=== PATIENT | female | born 1955 | race Caucasian/White ===

== ENCOUNTER 2024-08-02 10:08 | Outpatient (AMB) | payer OTHER, SELFPAY ==
--- NOTE | 2024-08-02 10:31 | MHC.OFFVIS ---
Vital Signs 08/02/24 10:32 Height 5 ft 3 in Weight 137 lb 5.568 oz BMI 24.3 BP 108/66 Blood Pressure Location Lt brachial Position Sitting Pulse 79 Pulse Source Pulse Oximeter Pulse Oximetry (%) 98 Oxygen Delivery Method Room Air Intake Visit Reasons: osteoporosis Intake Note: Patient presents for RA follow up today accompanied with her daughter and . Accompanied by: Daughter Allergies coconut Allergy (Mild, Verified 08/02/24 10:39) Anaphylaxis peanut Allergy (Mild, Verified 08/02/24 10:39) Anaphylaxis sesame Allergy (Mild, Uncoded 08/02/24 10:39) Anaphylaxis tree nuts Allergy (Mild, Uncoded 08/02/24 10:39) Anaphylaxis HPI HPI osteoporosis: Details: Hx breast cancer status post left mastectomy in remission. Last mammogram was this month. She tried leflunomide in April for a month but it caused rash, diarrhea, headaches and nausea with combination methotrexate. Diarrhea was then subsequently treated with cholestyramine without benefit. Symptoms have resolved. Hydroxychloroquine was discontinued but I am unclear why. She tried hydroxychloroquine for 1 month and reports no side effects. She was previously on Plaquenil 300 mg daily. Morning stiffness is hours. She had swelling in her hands and pain in her elbows. She also has pain in her ankles and feet. She ran out of prednisone. Review of Systems Const All systems reviewed & are unremarkable except as noted in HPI and below Physical Exam Vital Signs: Last Vital Signs Pulse 79 08/02/24 10:32 BP 108/66 08/02/24 10:32 Pulse Ox 98 08/02/24 10:32 Oxygen Delivery Method Room Air 08/02/24 10:32 BMI result Body Mass Index 24.3 Const Other: General: Comfortable CVS: RRR Respiratory: clear to auscultation bilaterally. Good respiratory effort Skin: No lesions seen MSK: Tender to palpate bilateral MCPs withsynovitis. Tender PIPs. Right 3rd PIP is swollen. Tender wrists. Tender elbows. Left elbow synovitis present. Range of motion with abduction of bilateral shoulders is not full. Full internal external rotation of bilateral shoulders. Tender bilateral knees, ankles and MTPs. Assessment & Plan Assessment & Plan (1) Rheumatoid arthritis: Comment: We Seronegative. Erosive marginal bony erosions. Diagnosed in 2009. Failed Humira. Combination methotrexate and Enbrel was discontinued 05/2020 due diagnosis of breast cancer initiation of chemo. Hydroxychloroquine was started 01/20/2022 then discontinued for unclear reasons 2023. Methotrexate restarted 2023 and up titrated to 20 mg once weekly. Inflammatory arthritis is uncontrolled. We discussed management with combination DMARD therapy. At this time I would like to restart hydroxychloroquine with methotrexate after lab results are back and reassess with follow-up in 3 months. We discussed the possibility of considering triple therapy (methotrexate, hydroxychloroquine and sulfasalazine) with PCP prophylaxis versus methotrexate and selective MIGUEL 1 inhibitor Rinvoq. We discussed risks and benefits of both options. Patient is very hesitant of trying another biologic due to cancer history, which is understandable. She has history of anemia, which is why I am avoiding nonselective MIGUEL inhibitors tofacitinib and baricitinib. Code(s): M06.9 - Rheumatoid arthritis, unspecified Category: Medical Plan: [facility] for drug monitoring on high-risk medication. I am requesting lab results prior sending prescription for hydroxychloroquine 300 mg daily and methotrexate 20 mg once weekly Continue folic acid 1 mg daily She would need labs next month. Patient prefers to do labs a her local lab. Lab requisition given to patient Return to clinic in 3 months (2) Other longterm (current) drug therapy: Code(s): Z79.899 - Other longterm (current) drug therapy Category: Medical Plan: See above Orders: Orders C Reactive Protein 1 Month M06.9 - Rheumatoid arthritis, unspecified, Z79.899 - Other longterm (current) drug therapy Alanine Aminotransferase 1 Month Z79.60 - [facility] (current) use of unspecified immunomodulators and immunosuppressants Aspartate Amino Transferase 1 Month Z79.60 - [facility] (current) use of unspecified immunomodulators and immunosuppressants Creatinine 1 Month Z79.60 - [facility] (current) use of unspecified immunomodulators and immunosuppressants T Spot TB 1 Month M06.9 - Rheumatoid arthritis, unspecified, Z79.899 - Other design inserter (current) drug therapy Erythrocyte Sedimentation Rate 1 Month M06.9 - Rheumatoid arthritis, unspecified, Z79.899 - Other longterm (current) drug therapy Complete Blood Count Auto Diff 1 Month Z79.60 - [facility] (current) use of unspecified immunomodulators and immunosuppressants Hepatitis B,C Profile 1 Month M06.9 - Rheumatoid arthritis, unspecified, Z79.899 - Other longterm (current) drug therapy Medications: New prednisone Take 4 tablet daily 5 days, 3 tablets daily 5 days, 2 tablets daily 5 days, 1 tablet daily 5 days. Take prednisone with food 5 mg PO DIRECTED 50 tabs 0RF Coding Level of Care Code Est Pt Level 4 (49065) Complex EM visit Add On G2211 Diagnoses Rheumatoid arthritis M06.9 Other design inserter (current) drug therapy Z79.899
[2024-08-02 10:32] VITALS: BP 108/66; PULSE 79; O2SAT 98; BMI 24.3
== END 2024-08-02 11:49 | disposition home or self-care (01) ==
PROVIDERS: PCP Internal Medicine; Visit Provider Internal Medicine Rheumatology
DX: M06.9 Rheumatoid arthritis, unspecified (principal); Z79.899 Other long term (current) drug therapy
CPT/HCPCS: 99214

== ENCOUNTER → 2024-08-02 10:08 | Outpatient (BNVA) | payer OTHER, SELFPAY | PROVIDERS: PCP Internal Medicine; Visit Provider Internal Medicine Rheumatology ==

== ENCOUNTER 2024-10-11 09:25 | Outpatient (REF) | payer OTHER, SELFPAY ==
--- OUTSIDE RECORDS SUMMARY | 2024-10-11 10:35 | XMS_ITS | Patient Health Record ---
Author Organization [facility] Address [address] [place] [address] Care Team Providers Care Sagger Filler Name Role Phone Elder LUBIN, Vee Primary Care Provider Saqib Douglas Unavailable [phone] Allergies Allergen (clinical drug ingredient) Drug/Non Drug Allergy documented on EMR Reaction Allergy Type Onset Date Status Peanut Butter Flavor Unknown Drug Allergy Active peanut allergenic extract Peanut (Diagnostic) Unknown Drug Allergy Active sesame seed allergenic extract Sesame Seed (Diagnostic) Unknown Drug Allergy Active Adhesive rash Allergy Active coconut oil Coconut Oil Unknown Drug Allergy Act eduardo cortisone Cortisone red face Drug Allergy Active Latex Latex rash Allergy Active Tree Nuts Unknown Allergy Active Reason For Referral No Information Medications Medication SIG (Take, Route, Frequency, Duration) Notes Start Date End Date Status Ado-Trastuzumab Emtansine Active Magnesium 250 MG 1 tablet with a meal Orally Once a day for 30 day(s) Active Herceptin Active Folic Acid 1 MG 1 tablet Orally Once a day for 30 day(s) Active Calcium 600 MG 1 tablet with meals Orally Twice a day for 30 day(s) Active Vitamin D Active Synthroid 88 MCG 1 tablet in the morn ing on an empty stomach Orally Once a day for 30 day(s) Active Multivitamin - 1 tablet Orally Once a day for 30 day(s) Active Immunizations Vaccine Route Administration Date Status Comme nts COVID-19 Pfizer BioNTech Vaccine Unknown 11/20/2020 Administered COVID-19 Pfizer BioNTech Vaccine Unknown 12/16/2020 Administered 1st 11/20/2020 Social History Tobacco Use: Social History Observation Description Date Details (start date - stop date) Never Smoker NA - NA Tobacco Use/Smoking Question Answer Notes Are you a: nonsmoker Additional Findings: Tobacco Non-User Current no n-smoker Alcohol Screen Question Answer Notes Did you have a drink containing alcohol in the p ast year? No Points 0 Interpretation Negative Tobacco use other than smoking: Question Answer Notes Are you an other tobacco user? No Plan Of Treatment Pending Test Test Name Order Date [id number] Plate 12/27/2020 [id number] Plate 01/15/2021 Insurance Providers Payer Name Payer Address Payer Phone Subscriber Number Group Number Insured Name Patient Relationship to Insured Coverage Start Date Coverage End Date Cigna [address] [place] [phone] [id number] Jonathan Carlos Spouse - patient is the spouse of the insured Medical (General) History Medical History History ICD Code Anemia Arthritis breast cancer Measles Mumps Chicken pox Numbness Reflux ( GERD) thyroid Transfusions Surgical History Surgery Date(Month/Year) left mastectomy 11/07/2020 Axillary Lymphnode Dissection 12/10/2020
--- OUTSIDE RECORDS SUMMARY | 2024-10-11 10:35 | XMS_ITS | Clinical Summary ---
Author Organization [facility] Address [address] [place] [address] Care Team Providers Care Military Technician Name Role Phone Unavailable Primary Care Provider Unavailabl e Social History Tobacco Use Types Packs/Day Years Used Date Smoking Tobacco: Never Assessed Sex and Gender Information Value Date Recorded Sex Assigned at Not on file Gender Identity Not on file Sexual Orientation Not on file Plan of Treatment Not on file
--- OUTSIDE RECORDS SUMMARY | 2024-10-11 10:35 | XMS_ITS ---
Author Name [facility] Organization Unknown Encounters Encounter Type Encounter Reason Primary Diagnosis Location Date Ambulatory [facility] 04/06/2023
[2024-10-11 18:24] LABS: MANUAL DIFF FLAG NO
[2024-10-11 19:04] LABS: Basophils Percent Auto 0.9 % (0-2); Eosinophils Absolute Auto 0.2 X10*3/uL (0.0-0.4); Eosinophils Percent Auto 4.2 % (0-4); Hematocrit 36.8 % (37.0-47.0); Hemoglobin 12.2 g/dl (12.0-16.0); Lymphocytes Absolute Auto 1.2 X10*3/uL (1.2-4.9); Lymphocytes Percent Auto 28.7 % (20-40); Mean Corpuscular HGB Conc 33.2 g/dl (31.0-35.0); Mean Corpuscular Hemoglobin 30.7 pg (27.0-33.0); Mean Corpuscular Volume 92.7 fL (80.0-98.0); Monocytes Absolute Auto 0.7 X10*3/uL (0.1-1.2); Monocytes Percent Auto 15.9 % (2-11); Neutrophils Absolute Auto 2.2 x10*3/uL (2.0-8.3); Neutrophils Percent Auto 50.3 % (45-73); Platelet Count 290 X10*3/uL (160-400); Red Blood Count 3.97 X10*6/uL (4.20-5.50); Red Cell Distribution Width 14.1 % (11.0-16.0); White Blood Count 4.3 X10*3/uL (4.8-10.8)
[2024-10-11 19:45] LABS: Alanine Aminotransferase 16 U/L (0-31); Aspartate Amino Transferase 30 U/L (5-31); C Reactive Protein < 0.10 mg/dL (< or = 0.50); Estimated Glomerular Filt Rate > 60
[2024-10-11 20:12] LABS: Erythrocyte Sedimentation Rate 12 MM/HR (0-20)
[2024-10-12 04:02] LABS: HBsAGNum1 0.24 S/CO (0.00-0.99); Hepatitis B Core Antibody Nonreactive (Nonreactive); Hepatitis B Surface Antigen Negative (Negative); ~HepC Num1 0.12 S/CO (0.00-0.79); ~Hepatitis B Surface Antibody NONREACTIVE (Nonreactive); ~Hepatitis C Antibody Nonreactive (Nonreactive)
[2024-10-14 17:13] LABS: TS Negative Control Passed; TS Panel A 0; TS Panel B 0; TS Positive Control Passed; TSpotTB Negative (Negative)
== END 2024-10-11 09:26 | disposition home or self-care (01) ==
LOC: HO.HKASLDS 09:25
PROVIDERS: Visit Provider Internal Medicine Rheumatology
DX: M06.9 Rheumatoid arthritis, unspecified (principal); Z79.899 Other long term (current) drug therapy; Z79.60 Long term (current) use of unspecified immunomodulators and immunosuppressants
CPT/HCPCS: 36415; 82565; 84450; 84460; 85025; 85652; 86140; 86481; 86704; 86706; 86803; 87340

== ENCOUNTER 2024-10-27 08:45 | Outpatient (AMB) | payer OTHER, SELFPAY ==
--- NOTE | 2024-10-27 08:49 | MHC.OFFVIS ---
Vital Signs 10/27/24 09:03 Height 5 ft 3 in Weight 132 lb 7.965 oz BMI 23.5 BP 100/60 Blood Pressure Location Rt brachial Position Sitting Pulse 60 Pulse Source Pulse Oximeter Pulse Oximetry (%) 98 Oxygen Delivery Method Room Air Intake Visit Reasons: Follow Up 3mo Intake Note: Patient presents for RA follow up Allergies coconut Allergy (Mild, Verified 10/27/24 09:03) Anaphylaxis peanut Allergy (Mild, Verified 10/27/24 09:03) Anaphylaxis sesame Allergy (Mild, Uncoded 08/02/24 10:39) Anaphylaxis tree nuts Allergy (Mild, Uncoded 08/02/24 10:39) Anaphylaxis HPI HPI Follow Up 3mo: Details: MS 15-20minutes. Hands and feet. She has throbbing sensation at night. 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 She felt unwell with gabapentin with increased somnolence. Review of Systems Const All systems reviewed & are unremarkable except as noted in HPI and below Physical Exam Vital Signs: Last Vital Signs Pulse 60 10/27/24 09:03 BP 100/60 10/27/24 09:03 Pulse Ox 98 10/27/24 09:03 Oxygen Delivery Method Room Air 10/27/24 09:03 BMI result Body Mass Index 23.5 Const Other: General: Comfortable CVS: RRR Respiratory: clear to auscultation bilaterally. Good respiratory effort Skin: No lesions seen MSK: Tender to palpate right 2nd to 5th PIP with synovitis of right 2nd and 3rd PIP. Squaring of left CMC with tenderness on palpation. No tenderness of wrists, elbows or shoulders. Normal range of motion of upper extremity and lower extremity. MTP tenderness with slight synovitis of 1st and 2nd MTPs bilateral. Assessment & Plan Assessment & Plan (1) Rheumatoid arthritis: Comment: Inflammatory arthritis has improved on combination with methotrexate and hydroxychloroquine. We discussed next steps with a course of prednisone. She has mild leukopenia on recent labs possibly due to methotrexate. I will monitor. Rheumatology history: Seronegative. Erosive marginal bony erosions. Diagnosed in 2009. Failed Humira. Combination methotrexate and Enbrel was discontinued 05/2020 due diagnosis of breast cancer initiation of chemo. Hydroxychloroquine was started 01/20/2022 then discontinued for unclear reasons 2023. Methotrexate restarted 2023 and up titrated to 20 mg once weekly. HCQ 07/2024- Code(s): M06.9 - Rheumatoid arthritis, unspecified Category: Medical Plan: Prednisone course prescribed Continue hydroxychloroquine 300 mg daily. Eye exam visual field needs to be repeated in November. OCT not done. Patient will inquire about OCT at next appointment. Continue methotrexate 20 mg once weekly Continue folic acid 1 mg daily Labs for disease and drug monitoring on high-risk medication up-to-date Return to clinic in 3 months (2) Osteoarthritis of carpometacarpal joint of left thumb: Comment: Left CMC pain is uncontrolled Code(s): M18.12 - Unilateral primary osteoarthritis of first carpometacarpal joint, left hand Category: Medical Qualifiers: Osteoarthritis type: primary Qualified Code(s): M18.12 - Unilateral primary osteoarthritis of first carpometacarpal joint, left hand Plan: OT for custom splint and exercise program (3) Other marine oil terminal superintendent (current) drug therapy: Code(s): Z79.899 - Other marine oil terminal superintendent (current) drug therapy Category: Medical Plan: See above Orders: Orders OT Evaluation and Treatment Today M18.12 - Unilateral primary osteoarthritis of first carpometacarpal joint, left hand Medications: New prednisone Take 4 tablets daily 5 days, 3 tablets daily 5 days, 2 tablets daily 5 days, 1 tablet daily 5 days then stop. Take prednisone with food. 5 mg PO DIRECTED 50 tabs 0RF Coding Level of Care Code Est Pt Level 4 (48016) Complex EM visit Add On G2211 Diagnoses Rheumatoid arthritis M06.9 Primary osteoarthritis of first carpometacarpal joint of left hand M18.12 Osteoarthritis type: primary Other marine oil terminal superintendent (current) drug therapy Z79.899
[2024-10-27 09:03] VITALS: BP 100/60; PULSE 60; O2SAT 98; BMI 23.5
--- OUTSIDE RECORDS SUMMARY | 2024-10-27 09:32 | XMS_ITS | Patient Health Record ---
Author Organization [facility] Address [address] [place] [address] Care Team Providers Care Field Sales Specialist Name Role Phone Elder LUBIN, Vee Primary Care Provider Saqib Douglas Unavailable [phone] Allergies Allergen (clinical drug ingredient) Drug/Non Drug [...] Treatment Pending Test Test Name Order Date [id number] Plate 12/27/2020 [id number] Plate 01/15/2021 Insurance Providers Payer Name Payer Address Payer Phone Subscriber Number Group Number Insured Name Patient Relationship to Insured Coverage Start Date Coverage End Date Cigna [address] [place] [phone] [id number] Jonathan Carlos Spouse - patient is the spouse of the insured Medical (General) History Medical History History ICD Code Anemia Arthritis breast cancer Measles Mumps Chicken pox Numbness Reflux ( GERD) thyroid Transfusions Surgical History Surgery Date(Month/Year) left mastectomy 11/07/2020 Axillary Lymphnode Dissection 12/10/2020
--- OUTSIDE RECORDS SUMMARY | 2024-10-27 09:32 | XMS_ITS | Clinical Summary ---
Author Organization [facility] Address [address] [place] [address] Care Team Providers Care Fish Hatchery Specialist Name Role Phone Unavailable Primary Care Provider Unavailabl e Social History Tobacco Use Types Packs/Day Years Used Date Smoking Tobacco: Never Assessed Sex and Gender Information Value Date Recorded Sex Assigned at Not on file Gender Identity Not on file Sexual Orientation Not on file Plan of Treatment Not on file
== END 2024-10-27 09:37 | disposition home or self-care (01) ==
LOC: HO.RHES 08:45
PROVIDERS: PCP Internal Medicine; Visit Provider Internal Medicine Rheumatology
DX: M06.9 Rheumatoid arthritis, unspecified (principal); M18.12 Unilateral primary osteoarthritis of first carpometacarpal joint, left hand; Z79.899 Other long term (current) drug therapy
CPT/HCPCS: 99214

== ENCOUNTER 2024-11-23 09:28 | Outpatient (RCR) | payer OTHER, SELFPAY ==
--- NOTE | 2024-11-02 11:40 | MHC.OT.EP ---
[address] [phone] Occupational Therapy Plan of Care Patient Name: Enid Dimas Date of Evaluation: 11/02/24 Diagnosis: OA of L CMC joint Pain Location: Left CMC joint Current: 02/09 Right digits 2-5 Current: 02/09 Assessment: Enid is a 68 y/o female referred to OT with worsening left thumb pain due to OA. Pt reports constant pain, stiffness, and decreased strength of L hand. Also has pain and edema in right digits 2-5. Is currently on a Prednisone taper due to recent exacerbation of RA. Pt seen in clinic today to discuss splinting options and education on home program. Pt presents with restricted left wrist ROM with flexion at 52? and extension at 30?. Notable tenderness to palpation at the left CMC joint, accompanied by a visible bony prominence. Psych Nurse strength is decreased bilaterally (15# on the right and 10# on the left), with Quick DASH score of 45.5% indicating moderate difficulty with functional tasks, specifically opening jars and carrying heavier items. Enid would benefit from short term skilled OT for splinting, joint protection techniques and education on HEP for optimal function. Frequency and Duration: The patient will be seen 1x/wk for 3 weeks Short Term Goals: IND with thermal modalities for pain management IND with splinting schedule to stabilize the left CMC joint, reduce pain, and improve function Mcc Goals: IND with joint protection strategies, activity modification, and adaptive techniques IND with hand/wrist ROM and progressive strengthening HEP Treatment Plan: Therapeutic Exercise Therapeutic Activity Home Exercise Program Splinting Patient Education Paraffin [facility]HP Electronically Signed By: Verna Hill MS OTR/L Please Sign and return to therapist. Thank you once again for your referral.
--- NOTE | 2024-11-23 14:15 | MHC.OT.DC ---
[address] [phone] F: [phone] Occupational Therapy Discharge Note Patient Name: Enid Dimas Provider: Leroy Colon Diagnosis: OA of L CMC joint Date of Discharge: 11/23/24 Treatments to Date: 3 Discharge Status: Achieved Goals Improved Function Independent with HEP Discharge Summary: Enid reports consistent use of thumb spice splint with positive outcomes, including overall reduction in thumb pain. During pinch activities, she demonstrates improved awareness of previous compensatory hyperextension at the MCP joint of the left thumb, which was likely contributing to joint stress and discomfort. At this time, the patient is independent with pain management strategies and her home exercise program. She is in agreement with discharge. Thank you for this referral! Electronically Signed By: Verna Hill, OTR/L Reviewed/agree with student documentation: Therapist: Please Sign and return to therapist, thank you for your referral.
== END 2024-11-23 14:23 | disposition home or self-care (01) ==
LOC: HO.OTS 09:28
PROVIDERS: Visit Provider Internal Medicine Rheumatology
DX: M18.12 Unilateral primary osteoarthritis of first carpometacarpal joint, left hand (principal)
CPT/HCPCS: 97018; 97110; 97165

== ENCOUNTER 2025-01-17 09:14 | Outpatient (AMB) | payer OTHER, SELFPAY ==
[2025-01-17 09:16] VITALS: BP 100/72; PULSE 69; O2SAT 96; BMI 23.5
--- NOTE | 2025-01-17 09:16 | A.OFFVIS_ITS ---
Vital Signs 01/17/25 09:16 Height 5 ft 3 in Weight 132 lb 8 oz BMI 23.5 BP 100/72 Blood Pressure Location Rt brachial Position Sitting Pulse 69 Pulse Source Pulse Oximeter Pulse Oximetry (%) 96 Oxygen Delivery Method Room Air Intake Visit Reasons: 3 Months Intake Note: Patient presents for RA follow up. Accompanied by: Self / Same As Patient Allergies coconut Allergy (Mild, Verified 01/17/25 09:22) Anaphylaxis peanut Allergy (Mild, Verified 01/17/25 09:22) Anaphylaxis sesame Allergy (Mild, Uncoded 08/02/24 10:39) Anaphylaxis tree nuts Allergy (Mild, Uncoded 08/02/24 10:39) Anaphylaxis HPI HPI 3 Months: Details: She feels well. No recent joint swelling. She received another course of prednisone after a bee sting to her eye, which benefitted her joints. No recent infections. She had an eye exam in November. Physical Exam Vital Signs: Last Vital Signs Pulse 69 01/17/25 09:16 BP 100/72 01/17/25 09:16 Pulse Ox 96 01/17/25 09:16 Oxygen Delivery Method Room Air 01/17/25 09:16 BMI result Body Mass Index 23.5 Const Other: General: Comfortable CVS: RRR Respiratory: clear to auscultation bilaterally. Good respiratory effort Skin: No lesions seen MSK: Tender to palpate right 3rd PIP without synovitis. Squaring of left CMC without tenderness on palpation. No tenderness of wrists, elbows or shoulders. Normal range of motion of upper extremity and lower extremity. No MTP tenderness. Assessment & Plan Assessment & Plan (1) Rheumatoid arthritis: Comment: Inflammatory arthritis is controlled on combination with methotrexate and hydroxychloroquine. Slight leukopenia on labs from October. Rheumatology history: Seronegative. Erosive marginal bony erosions. Diagnosed in 2009. Failed Humira. Combination methotrexate and Enbrel was discontinued 05/2020 due diagnosis of breast cancer initiation of chemo. Hydroxychloroquine was started 01/20/2022 then discontinued for unclear reasons 2023. Methotrexate restarted 2023 and up titrated to 20 mg once weekly. HCQ 07/2024- Code(s): M06.9 - Rheumatoid arthritis, unspecified Category: Medical Plan: Continue hydroxychloroquine 300 mg daily. Eye exam visual field needs to be repeated in November, which she had done. OCT not done. Patient will inquire about scheduling an appointment for OCT exam Continue methotrexate 20 mg once weekly Continue folic acid 1 mg daily Labs for disease and drug monitoring on high-risk medication ordered this visit Return to clinic in 3 months (2) Osteoarthritis of carpometacarpal joint of left thumb: Comment: Left CMC pain is controlled with PT and splinting. Code(s): M18.12 - Unilateral primary osteoarthritis of first carpometacarpal joint, left hand Category: Medical Qualifiers: Osteoarthritis type: primary Qualified Code(s): M18.12 - Unilateral primary osteoarthritis of first carpometacarpal joint, left hand Plan: Continue to wear splint Continue exercises learned from OT Monitor clinically (3) Other joint terminal attack controller (current) drug therapy: Code(s): Z79.899 - Other joint terminal attack controller (current) drug therapy Category: Medical Plan: See above Orders: Orders Erythrocyte Sedimentation Rate Today M06.9 - Rheumatoid arthritis, unspecified, Z79.899 - Other joint terminal attack controller (current) drug therapy C Reactive Protein Today M06.9 - Rheumatoid arthritis, unspecified, Z79.899 - Other skilled nursing (current) drug therapy Aspartate Amino Transferase Today M06.9 - Rheumatoid arthritis, unspecified, Z79.60 - senior care (current) use of unspecified immunomodulators and immunosuppressants, Z79.899 - Other skilled nursing (current) drug therapy Complete Blood Count Auto Diff Today M06.9 - Rheumatoid arthritis, unspecified, Z79.60 - termite exterminator (current) use of unspecified immunomodulators and immunosuppressants, Z79.899 - Other joint terminal attack controller (current) drug therapy Creatinine Today M06.9 - Rheumatoid arthritis, unspecified, Z79.60 - senior care (current) use of unspecified immunomodulators and immunosuppressants, Z79.899 - Other joint terminal attack controller (current) drug therapy Alanine Aminotransferase Today M06.9 - Rheumatoid arthritis, unspecified, Z79.60 - senior care (current) use of unspecified immunomodulators and immunosuppressants, Z79.899 - Other skilled nursing (current) drug therapy Coding Level of Care Code Est Pt Level 4 (19649) Complex EM visit Add On G2211 Diagnoses Rheumatoid arthritis M06.9 Primary osteoarthritis of first carpometacarpal joint of left hand M18.12 Osteoarthritis type: primary Other joint terminal attack controller (current) drug therapy Z79.899
--- OUTSIDE RECORDS SUMMARY | 2025-01-17 09:51 | XMS_ITS | Clinical Summary ---
Author Organization [facility] Address [address] [place] [address] Care Team Providers Care Manager Athletics Name Role Phone Unavailable Primary Care Provider Unavailabl e Social History Tobacco Use Types Packs/Day Years Used Date Smoking Tobacco: Never Assessed Sex and Gender Information Value Date Recorded Sex Assigned at Not on file Gender Identity Not on file Sexual Orientation Not on file Plan of Treatment Not on file
== END 2025-01-17 10:02 | disposition home or self-care (01) ==
LOC: HO.RHES 09:14
PROVIDERS: PCP Internal Medicine; Visit Provider Internal Medicine Rheumatology
DX: M06.9 Rheumatoid arthritis, unspecified (principal); M18.12 Unilateral primary osteoarthritis of first carpometacarpal joint, left hand; Z79.899 Other long term (current) drug therapy
CPT/HCPCS: 99214

== ENCOUNTER 2025-01-17 09:14 | Outpatient (REF) | payer OTHER, SELFPAY ==
[2025-01-17 17:30] LABS: MANUAL DIFF FLAG NO
[2025-01-17 17:52] LABS: Basophils Percent Auto 0.5 % (0-2); Eosinophils Absolute Auto 0.2 X10*3/uL (0.0-0.4); Eosinophils Percent Auto 2.2 % (0-4); Hematocrit 39.1 % (37.0-47.0); Hemoglobin 12.2 g/dl (12.0-16.0); Imm Gran Abs Auto 0.02 X10*3/uL (0.00-0.03); Imm Gran Pct Auto 0.2 % (0.0-0.4); Lymphocytes Absolute Auto 1.8 X10*3/uL (1.2-4.9); Lymphocytes Percent Auto 21.9 % (20-40); Mean Corpuscular HGB Conc 31.2 g/dl (31.0-35.0); Mean Corpuscular Hemoglobin 30.4 pg (27.0-33.0); Mean Corpuscular Volume 97.5 fL (80.0-98.0); Mean Platelet Volume 10.2 fL (9.4-12.3); Monocytes Percent Auto 11.9 % (2-11); Neutrophils Absolute Auto 5.2 x10*3/uL (2.0-8.3); Neutrophils Percent Auto 63.3 % (45-73); Platelet Count 295 X10*3/uL (160-400); Red Blood Count 4.01 X10*6/uL (4.20-5.50); Red Cell Distribution Width 14.7 % (11.0-16.0); White Blood Count 8.3 X10*3/uL (4.8-10.8)
[2025-01-17 18:02] LABS: Alanine Aminotransferase 20 U/L (0-31); Aspartate Amino Transferase 22 U/L (5-31); C Reactive Protein 0.21 mg/dL (< or = 0.50); Estimated Glomerular Filt Rate > 60
[2025-01-17 18:28] LABS: Erythrocyte Sedimentation Rate 9 MM/HR (0-20)
== END 2025-01-17 09:15 | disposition home or self-care (01) ==
LOC: HO.HKASLDS 09:14
PROVIDERS: PCP Internal Medicine; Visit Provider Internal Medicine Rheumatology
DX: M06.9 Rheumatoid arthritis, unspecified (principal); M18.12 Unilateral primary osteoarthritis of first carpometacarpal joint, left hand; Z79.899 Other long term (current) drug therapy; Z79.60 Long term (current) use of unspecified immunomodulators and immunosuppressants
CPT/HCPCS: 36415; 82565; 84450; 84460; 85025; 85652; 86140

== ENCOUNTER 2025-04-20 09:07 | Outpatient (AMB) | payer OTHER, SELFPAY ==
--- NOTE | 2025-04-20 09:14 | MHC.OFFVIS ---
Vital Signs 04/20/25 09:15 Height 5 ft 3 in Weight 132 lb 0.91 oz BMI 23.4 BP 120/70 Blood Pressure Location Rt brachial Position Sitting Pulse 72 Pulse Source Pulse Oximeter Pulse Oximetry (%) 98 Oxygen Delivery Method Room Air Intake Visit Reasons: 3 Months Intake Note: Patient presents for RA follow up. Accompanied by: Spouse Allergies coconut Allergy (Mild, Verified 04/20/25 09:18) Anaphylaxis peanut Allergy (Mild, Verified 04/20/25 09:18) Anaphylaxis sesame Allergy (Mild, Uncoded 08/02/24 10:39) Anaphylaxis tree nuts Allergy (Mild, Uncoded 08/02/24 10:39) Anaphylaxis HPI HPI 3 Months: Details: Morning stiffness is hours. Pain is 5/10 intensity. Most of the pain is in her right hand in her feet. No new joint swelling today. No recent infections. She had left knee meniscal repair in January. She has recovered from knee surgery. [facility] Surgical History (Updated 04/20/25 @ 09:20 by Joan Odom CMA) S/P arthroscopic partial lateral meniscectomy of left knee Physical Exam Vital Signs: Last Vital Signs Pulse 72 04/20/25 09:15 BP 120/70 04/20/25 09:15 Pulse Ox 98 04/20/25 09:15 Oxygen Delivery Method Room Air 04/20/25 09:15 BMI result Body Mass Index 23.4 Const Other: General: Comfortable CVS: RRR Respiratory: clear to auscultation bilaterally. Good respiratory effort Skin: No lesions seen MSK: Tender to palpate right 2nd to 4th PIPs without synovitis. Squaring of left CMC without tenderness on palpation. No tenderness of wrists, elbows or shoulders. Normal range of motion of upper extremity and lower extremity. Bilateral MTP tenderness. Assessment & Plan Assessment & Plan (1) Rheumatoid arthritis: Comment: Moderate disease activity per CDAI 13 on methotrexate and hydroxychloroquine. Leukopenia resolved on most recent labs from January 2025.. We discussed next steps in treatment with increasing methotrexate dose and optimizing treatment on methotrexate to better control inflammatory arthritis. Rheumatology history: Seronegative. Erosive marginal bony erosions. Diagnosed in 2009. Failed Humira. Combination methotrexate and Enbrel was discontinued 05/2020 due diagnosis of breast cancer initiation of chemo. Hydroxychloroquine was started 01/20/2022 then discontinued for unclear reasons 2023. Methotrexate restarted 2023 and up titrated to 20 mg once weekly. HCQ 07/2024- Code(s): M06.9 - Rheumatoid arthritis, unspecified Category: Medical Plan: Continue hydroxychloroquine 300 mg daily. Eye exam visual field needs to be repeated in November, which she had done. OCT not done. Patient will inquire about scheduling an appointment for OCT exam Continue methotrexate 22.5 mg once weekly. I will consider changing methotrexate to subcutaneous injection next visit for greater bio availability, which was discussed with patient. Continue folic acid 1 mg daily Labs for disease and drug monitoring on high-risk medication ordered this visit Return to clinic in 3 months (2) Osteoarthritis of carpometacarpal joint of left thumb: Comment: Left CMC pain is controlled with PT and splinting. Code(s): M18.12 - Unilateral primary osteoarthritis of first carpometacarpal joint, left hand Category: Medical Qualifiers: Osteoarthritis type: primary Qualified Code(s): M18.12 - Unilateral primary osteoarthritis of first carpometacarpal joint, left hand Plan: Continue to wear splint Continue exercises learned from OT. Discussed importance of increased compliance with exercises daily Monitor clinically (3) Other residential (current) drug therapy: Code(s): Z79.899 - Other assistant terminal manager (current) drug therapy Category: Medical Plan: See above Medications: Changed From methotrexate sodium 20 mg (8 x 2.5 mg) PO QWEEK 12 weeks 96 tabs 0RF To methotrexate sodium 22.5 mg (9 x 2.5 mg) PO QWEEK 108 tabs 0RF 12 weeks Coding Level of Care Code Est Pt Level 4 (43698) Complex EM visit Add On G2211 Diagnoses Rheumatoid arthritis M06.9 Primary osteoarthritis of first carpometacarpal joint of left hand M18.12 Osteoarthritis type: primary Other assistant terminal manager (current) drug therapy Z79.899
[2025-04-20 09:15] VITALS: BP 120/70; PULSE 72; O2SAT 98; BMI 23.4
--- OUTSIDE RECORDS SUMMARY | 2025-04-20 10:34 | XMS_ITS | Clinical Summary ---
Author Organization [facility] Address [address] [place] [address] Phone Care Team Providers Care Supervisor Fertilizer Processing Name Role Phone Marsha Brewer MD Primary Care Provider [phone] Allergies Active Allergy Reactions Criticality Noted Date Comments Adhesive Tape-Silicones 02/23/2025 Other 02/23/2025 COCONUT, SESAME, TREE NUTS Tree Nuts Anaphylaxis High 02/23/2025 PEANUT-INDUCED ANAPHYLAXIS Medications EPINEPHrine (EpiPen 2-Reji) 0.3 mg/0.3 mL injection Inject 0.3 mL (0.3 mg total) into the thigh if needed for anaphylaxis. Active levothyroxine (SYNTHROID, LEVOTHROID) 88 mcg tablet Take by mouth 1 (one) time each day before breakfast. Active folic acid (FOLVITE) 1 mg tablet Take 1 tablet (1 mg total) by mouth 1 (one) time each day. Active calcium carbonate-dianelys calciferol (Calcium 500 + D) 500 mg-10 mcg (400 unit) per chewable tablet Chew 1 tablet 1 (one) time each day. Active calcium carb,gluc/mag gluc,ox (CALCIUM MAGNESIUM ORAL) Take by mouth 2 (two) times a day. Active multivit-min/fo lic acid/vit K1 (MULTI FOR HER 50 PLUS ORAL) Take by mouth 2 (two) times a day. Active methotrexate 2.5 mg tablet Take by mouth 1 (one) time per week Follow directions carefully, and ask to explain any part you do not understand. Take exactly as directed. Active hydroxychloroqu ine (PLAQUENIL) 200 mg tablet Take 1.5 tablets (300 mg total) by mouth 1 (one) time each day. Active predniSONE (DELTASONE) 5 mg tablet Take 1 tablet (5 mg total) by mouth 1 (one) time each day. Active bisacodyL (DULCOLAX) 5 mg EC tablet Take 2 tablets by mouth right before beginning bowel prep. See instructions provided by the office 2 tablet 5 Active polyethylene glycol (Golytely) 236-22.74-6.74 -5.86 gram solution Take 4L by mouth once for one dose. May substitue any PEG. Starting at 2PM the day before your procedure drink 1 8oz glasses at your own pace until you complete half of the gallon. Finish 2nd half of the gallon at 8PM. 4000 mL 5 Active Encounters Date Type Department Care Team Description 02/22/2025 Telephone Gastroenterology - [place] [facility] [address] [facility] [address] [place] [address] Lori Farrell MD from Last 3 Months Social History Tobacco Use Types Packs/Day Years Used Date Smoking Tobacco: Never Assessed Comments Unknown Sex and Gender Information Value Date Recorded Sex Assigned at Not on file Legal Sex Female 1:35 PM EDT Gender Identity Not on file Sexual Orientation Not on file Plan of Treatment Health Maintenance Due Date Last Done Comments Breast Cancer Screening 1955 COVID-19 Vaccine (#1) 1961 DTaP,Tdap,and Td Vaccines (1 - Tdap) 11/23/1975 Pneumococcal Vaccine: 50+ Ye ars (1 of 1 - PCV) 2006 Zoster Vaccines (1 of 2) 2006 Depression Screening 08/03/2024 Colorectal Cancer Screening: Colonoscopy 02/23/2025 Falls Risk Assessment 02/23/2025 Hepatitis C Screening 02/23/2025 Medicare Annual Wellness Visit 02/23/2025 Osteoporosis Screening (Bone Density Screening) 02/23/2025 Social Influencers of Health Screening 02/23/2025 Influenza Vaccine (#1) 2025 RSV Immunization Adult Patie nts (1 - 1-dose 75+ series) 11/23/2031 HIB Vaccines Aged Out No longer eligi ble based on patient's age to complete this topic HPV Vaccines Aged Out No longer eligi ble based on patient's age to complete this topic Hepatitis A Vaccines Aged Out No long er eligible based on patient's age to complete this topic Hepatitis B Vaccines Aged Out No long er eligible based on patient's age to complete this topic IPV Vaccines Aged Out No longer eligi ble based on patient's age to complete this topic MMR Vaccines Aged Out No longer eligi ble based on patient's age to complete this topic Meningococcal ACWY Vaccine Aged Out N o longer eligible based on patient's age to complete this topic Meningococcal B Vaccine Aged Out No l onger eligible based on patient's age to complete this topic RSV Immunization Patients Un luis armando 20 months Aged Out No longer eligible b ased on patient's age to complete this topic Varicella Vaccines Aged Out No longer eligible based on patient's age to complete this topic Insurance [employer] MEDICARE Care Teams Supervisor Fertilizer Processing Relationship Specialty [place] [address] [place] [id number] PCP - General Internal Medicine 02/22/25
--- OUTSIDE RECORDS SUMMARY | 2025-04-20 10:34 | XMS_ITS ---
Author Name [facility] Organization Unknown History of Medication Use Medication Directions Dispensed Refills Start Date End Date Stat us predniSONE (DELTASONE) 20 mg tablet Take 2 tablets (40 mg total) by mouth daily for 5 days. Take with food. 01/10/2025 aborted methotrexate 2.5 mg tablet 12/29/2024 active hydroxychloroquine (PLAQUENIL) 200 mg tablet 11/13/2024 active calcium carbonate-vitamin D3 500 mg-10 mcg (400 unit) per tablet Take 1 tablet by mouth daily. active folic acid (FOLVITE) 1 mg tablet 1 tablet Orally Once a day for 30 day(s) active SYNTHROID 88 mcg tablet 1 tablet in the morning on an empty stomach Orally Once a day for 30 day(s) active Allergies Allergen Reaction Severity Comment Documented Date Source Statu s SESAME SEED ANAPHYLAXIS Level of certainty: Very Certain 01/10/2025 [facility] active TREE NUT Level of certainty: Very Certain 06/04/2020 [facility] active COCONUT ANAPHYLAXIS Level of certainty: Very Certain [facility] LATEX RASH Level of certainty: Very Certain [facility] PEANUT BUTTER FLAVOR [facility] Problems Problem Status Onset Date Problem Type Date of Resoluti on Source Allergic reaction to bee sting active 2025-01-[address] [facility] Encounters Encounter Type Encounter Reason Primary Diagnosis Location Date Ambulatory Toxic effect of venom(989.5) Toxic effect of venom(989.5) [facility] 01/10/2025 Ambulatory [facility] 04/06/2023 Care Team Organization Name Specialty Phone Email Start Date End Da te [facility] 01/10/2025 [facility] 023 04/06/2023 [facility] 023
--- OUTSIDE RECORDS SUMMARY | 2025-04-20 10:34 | XMS_ITS | Encounter Summary ---
Author Organization [facility] Address [address] [place], [place] [id number] Phone Care Team Providers Care Manager Retail Store Name Role Phone Vee Friedman MD Primary Care Provider [phone] Rica Obregon MD Unavailable [phone] Azul Baird MD Unavailable Encounter Details Date Type Department Care Team (Late st Contact Info) Description 06/05/2020 Procedure Pass [facility] [place], Mammography, Zo[facility] Imaging Department [address] [place] [address] Social History Tobacco Use Types Packs/Day Years Used Date Smoking Tobacco: Never Smokeless Tobacco: Never Alcohol Use Standard Drinks/Week Comments Not Currently 0 (1 standard drink = 0.6 oz pur e alcohol) Comments Unknown Sex and Gender Information Value Date Recorded Sex Assigned at Not on file Legal Sex Female 10:48 AM EDT Gender Identity Not on file Sexual Orientation Not on file 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 Not on file Not on file documented as of this encounter Plan of Treatment Not on file documented as of this encounter Visit Diagnoses Not on filedocumented in this encounter Care Teams Manager Retail Store Relationship Specialty Start Date End Date Vee Friedman MD [address] [place] [id number] PCP - General Internal Medicine 01/24/16 Rica Obregon MD [facility] [address] [place] [phone] [email or web address] 06/05/20 Azul Baird MD [address] [place] [phone] [email or web address] Surgical Oncology 06/05/20 documented as of this encounter Additional Source Comments The information contained in this document represents components of the legal health record. It is not the complete legal health record.[facility]
--- OUTSIDE RECORDS SUMMARY | 2025-04-20 10:34 | XMS_ITS | Encounter Summary ---
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 Not on file Not on file documented as of this encounter Plan of Treatment Not on file documented as of this encounter Visit Diagnoses Not on filedocumented in this encounter Care Teams Marketing Technologist Relationship Specialty Start Date End Date Vee Friedman MD [address] [place] [id number] PCP - General Internal Medicine 01/24/16 Rica Obregon MD 44 [facility] [address] [place] [phone] [email or web address] Medical Oncology 06/05/20 Azul Baird MD [address] [place] [phone] [email or web address] Surgical Oncology 06/05/20 documented as of this encounter Additional Source Comments The information contained in this document represents components of the legal health record. It is not the complete legal health record.[facility]
--- OUTSIDE RECORDS SUMMARY | 2025-04-20 10:34 | XMS_ITS ---
Author Organization [facility] Address [address] [place] [address] Phone Care Team Providers Care Sheet Metal Worker Helper Name Role Phone Vee Friedman MD Primary Care Provider [phone] Rica Obregon MD Unavailable [phone] Azul Baird MD Unavailable Active Problems Problem Noted Date Diagnosed Date Malignant neoplasm of overla pping sites of left breast in female, estrogen receptor negative 06/04/2020 Current Treatment and Therapy Plans No current plan information found. Past Treatment and Therapy Plans TREATMENT PLAN Plan Name Start Date Discontinue Date Treatment Medications Discontinue Reason Plan Provider Cycles PACLITAX EL/PERTU ZUMAB, TRASTUZU MAB,AND HYALURON IDASE-ZZ XF 0 01/16/2025 PACLitaxel (TAXOL)pertuzum ab-trastuzumab- hyaluronidase-z zxf (PHESGO) 1,200 mg-600mg- 46168 unit/15mLpertuz umab-trastuzuma b-hyaluronidase -zzxf (PHESGO) 600 mg-600 mg- 54706 unit/10mL a. Therapy Complete Rica Obregon MD Treatment not started
--- OUTSIDE RECORDS SUMMARY | 2025-04-20 10:34 | XMS_ITS | Clinical Summary ---
Author Organization [address] Address [address] [place] [phone] Care Team Providers Care Marketing Producer Name Role Phone No, Pcp (Do Not Change Name) Primary Care Provid er Unavailable Allergies Active Allergy Reactions Criticality Noted Date Comments Adhesive Rash Low 01/10/2025 Coconut Anaphylaxis High 01/10/2025 Level of certainty: Very Certain Latex Rash Low 01/10/2025 Level of certainty: Very Certain Peanut Butter Flavor Unknown 01/10/2025 Sesame Seed Anaphylaxis High 01/10/2025 Level of certainty: Very Certain Tree Nut Anaphylaxis,Unknown High 06/04/2020 Level of certainty: Very Certain Medications calcium carbonate-vitam in D3 500 mg-10 mcg (400 unit) per tablet Take 1 tablet by mouth daily. Active folic acid (FOLVITE) 1 mg tablet 1 tablet Orally Once a day for 30 day(s) Active hydroxychloroqu ine (PLAQUENIL) 200 mg tablet 11/13/2024 Activ e SYNTHROID 88 mcg tablet 1 tablet in the morning on an empty stomach Orally Once a day for 30 day(s) Active methotrexate 2.5 mg tablet 12/29/2024 Activ e Active Problems Problem Noted Date Diagnosed Date Allergic reaction to bee sting 01/10/2025 Social History Tobacco Use Types Packs/Day Years Used Date Smoking Tobacco: Never Tobacco Cessation:Counseling Given: Not Answered Alcohol Use Standard Drinks/Week Comments Not Currently 0 (1 standard drink = 0.6 oz pur e alcohol) Comments Unknown Sex and Gender Information Value Date Recorded Sex Assigned at Not on file Legal Sex Female 9:17 AM EDT Gender Identity Not on file Sexual Orientation Not on file Last Filed Vital Signs Vital Sign Reading Time Taken Comments Blood Pressure 134/75 01/10/2025 7:21 PM EDT Pulse 78 01/10/2025 7:21 PM EDT Temperature 37 C (98.6 F) 01/10/2025 7:21 PM EDT Respiratory Rate 18 01/10/2025 7:21 PM EDT Oxygen Saturation 96% 01/10/2025 7:21 PM EDT Inhaled Oxygen Concentration - - Weight 59.9 kg (132 lb) 01/10/2025 7:21 PM EDT Height - - Body Mass Index - - Plan of Treatment Health Maintenance Due Date Last Done Comments HIV screening 1969 Hepatitis C screening 1974 Lipid disorder screening 1996 Colon cancer screening, Colonoscopy 2001 Diabetes screening 2001 Shingles vaccine (Shingrix) (1 of 2 - Shingrix (RZV) 2 Dose Standard Series) 2006 RSV Immunization (1 - Risk 60-74 years 1-dose series) 2016 Osteoporosis screening (bone density) 2021 Breast cancer screening 06/05/2022 06/05/2020 Influenza vaccine 03/03/2025 05/21/2021, 05/14/2020 Covid-19 vaccine series ( - season) 2025 08/08/2021, 12/16/2020, 11/20/2020 Pneumococcal Vaccine (50+ years) (3 of 3 - PPSV23, PCV20 or PCV21) 10/02/2025 10/02/2020, 06/20/2020 Tetanus adult (Td q 10,TDAP once) 08/18/2029 08/18/2019 Cervical cancer screening Discontinued Meningococcal B Vaccine Aged Out No l onger eligible based on patient's age to complete this topic Meningococcal Vaccine Aged Out No michell fredy eligible based on patient's age to complete this topic Insurance MGD Care Teams Marketing Producer Relationship Specialty Start Date End Date No, Pcp (Do Not Change Name) PCP - General 01/10/25
--- OUTSIDE RECORDS SUMMARY | 2025-04-20 10:34 | XMS_ITS | Clinical Summary ---
Author Organization [facility] Address [address] [place] [address] Care Team Providers Care Machine Programmer Name Role Phone Unavailable Primary Care Provider Unavailabl e Social History Tobacco Use Types Packs/Day Years Used Date Smoking Tobacco: Never Assessed Sex and Gender Information Value Date Recorded Sex Assigned at Not on file Gender Identity Not on file Sexual Orientation Not on file Plan of Treatment Not on file
--- OUTSIDE RECORDS SUMMARY | 2025-04-20 10:35 | XMS_ITS | Patient Health Record ---
Author Organization [facility] Address [address] [place] [address] Care Team Providers Care Head Housekeeper Name Role Phone Elder LUBIN, Vee Primary Care Provider Saqib Douglas Unavailable [phone] Allergies Allergen (clinical drug ingredient) Drug/Non Drug [...] tablet with a meal Orally Once a day; Duration: 30 day(s) Active Herceptin Active Folic Acid 1 MG 1 tablet Orally Once a day; Duration: 30 day(s) Active Calcium 600 MG 1 tablet with meals Orally Twice a day; Duration: 30 day(s) Active Vitamin D Active Synthroid 88 MCG 1 tablet in the morn ing on an empty stomach Orally Once a day; Duration: 30 day(s) Active Multivitamin - 1 tablet Orally Once a day; Duration: 30 day(s) Active Immunizations Vaccine Route Administration [...] Treatment Pending Test Test Name Order Date [id number] Plate 12/27/2020 [id number] Plate 01/15/2021 Insurance Providers Payer Name Payer Address Payer Phone Subscriber Number Group Number Insured Name Patient Relationship to Insured Coverage Start Date Coverage End Date Cigna [address] [place], [place] [phone] [id number] Jonathan Carlos Spouse - patient is the spouse of the insured Medical (General) History Medical History History ICD Code Anemia Arthritis breast cancer Measles Mumps Chicken pox Numbness Reflux ( GERD) thyroid Transfusions Surgical History Surgery Date(Month/Year) left mastectomy 11/07/2020 Axillary Lymphnode Dissection 12/10/2020
--- OUTSIDE RECORDS SUMMARY | 2025-04-20 10:35 | XMS_ITS | Clinical Summary ---
Author Organization [facility] Address [address] [place] [address] Phone Care Team Providers Care Pie Bottomer Name Role Phone Vee Friedman MD Primary Care Provider [phone] Rica Obregon MD Unavailable [phone] Azul Baird MD Unavailable Allergies Active Allergy Reactions Criticality Noted Date Comments Tree Nut 06/04/2020 Medications ENBREL SURECLICK 50 mg/mL (1 mL) PnIj Inject 50 mg into the muscle once a week. 05/18/2020 Active methotrexate 2.5 MG Oral tablet Take 8 tablets by mouth once a week. 05/22/2020 Active SYNTHROID 88 mcg tablet 05/22/2020 Active folic acid (FOLVITE) 1 MG tablet Take 1 mg by mouth daily. 05/22/2020 Active magnesium oxide 250 mg (150 mg elemental) Tab Take 250 mg by mouth daily. Active calcium carbonate-vitam in D3 1,250 mg (500 mg elemental)-400 units per tablet Take 1 tablet by mouth daily. Active multivitamins capsule Take 1 capsule by mouth daily. Active naproxen sodium (ALEVE) 220 MG tablet Take 220 mg by mouth every 12 (twelve) hours as needed for pain (specific location in comments). Active Active Problems Problem Noted Date Diagnosed Date Malignant neoplasm of overla pping sites of left breast in female, estrogen receptor negative 06/04/2020 Family History Medical History Relation Comments Pancreatic cancer Father Breast cancer Maternal Aunt Breast cancer Maternal Cousin Relation Status Comments Father Maternal Aunt Maternal Cousin Social History Tobacco Use Types Packs/Day Years Used Date Smoking Tobacco: Never Smokeless Tobacco: Never Alcohol Use Standard Drinks/Week Comments Not Currently 0 (1 standard drink = 0.6 oz pur e alcohol) Education Answer Date Recorded Are you interested in more education? Not on leta e 11/28/2022 Are you concerned about learning? Not on file 11/28/2022 No 11/28/2022 No 11/28/2022 Digital Access Answer Date Recorded No 12/29/2022 No 12/29/2022 No 12/29/2022 Reliable internet access at home? Not on file 12/29/2022 Device with a working camera? 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 Not on file Not on file Last Filed Vital Signs Vital Sign Reading Time Taken Comments Blood Pressure 114/60 06/05/2020 7:48 AM EST Pulse 87 06/05/2020 7:48 AM EST Temperature 36.9 C (98.4 F) 06/05/2020 7:48 AM EST Respiratory Rate 15 06/05/2020 7:48 AM EST Oxygen Saturation 98% 06/05/2020 7:48 AM EST Inhaled Oxygen Concentration - - Weight 64.8 kg (142 lb 13.7 oz) 06/05/2020 7:48 AM EST Height 160 cm (5' 2.99 ) 06/05/2020 7:48 AM EST Body Mass Index 25.31 06/05/2020 7:48 AM EST Plan of Treatment Health Maintenance Due Date Last Done Comments Adult Td,Tdap Booster 1956 LIPID PANEL 1956 DEPRESSION SCREENING 1968 HEPATITIS C SCREENING 1974 PNEUMOCOCCAL VACCINES (50+ years) (1 of 2 - PCV) 11/23/1975 ZOSTER VACCINES (1 of 2) 11/23/1975 SMOKING STATUS SCREENING (On ce After 26 Yrs) 1982 COLOGUARD 2001 COLONOSCOPY 2001 COLORECTAL CANCER SCREENING 2001 FIT TEST 2001 FOBT 2001 SIGMOIDOSCOPY 2001 VIRTUAL COLONOSCOPY 2001 RSV VACCINE (1 - Risk 60-74 years 1-dose series) 2016 TSH LEVEL 01/23/2017 01/24/2016 COVID-19 VACCINE (3 - Pfizer risk series) 01/13/2021 12/16/2020, 11/20/2020 OSTEOPOROSIS SCREENING INITI AL (ONE-TIME) 2021 MAMMOGRAM 05/22/2022 05/22/2020, 05/18/2020 INFLUENZA VACCINE (#1) 2025 05/21/2021 HEPATITIS A VACCINES Aged Out No long er eligible based on patient's age to complete this topic HIB VACCINES Aged Out No longer eligi ble based on patient's age to complete this topic MENINGOCOCCAL VACCINES (ACWY) Aged Out No longer eligible based on patient's age to complete this topic MENINGOCOCCAL VACCINES (B) Aged Out N o longer eligible based on patient's age to complete this topic Medical Devices Not on file Procedures Procedure Name Priority Date/Time Associated Diagnosis Comments BI MAMMOGRAM OUTSIDE (NO INTERPRETATION) Routine 05/22/2020 12:00 AM EDT TSH Routine 01/24/2016 10:49 AM EDT from Last 3 Months or Most Recently Relevant to Health Maintenance Results * Mammogram Outside (No Interpretation) (05/22/2020 12:00 AM EDT) Other Narrative [facility] 7:06 AM EST This study is for PACS storage only and not for interpretation. us Rica Obregon MD IMG OUTSIDE IMAGING W/OUT I NTERPRETATION Final Result PERCIPIO_BWH * (ABNORMAL) TSH (01/24/2016 10:49 AM EDT) TSH 0.08(L) 0.40 - 5.00 uIU/mL [facility] 01/24/2016 10:4 9 AM EDT 01/24/2016 2:05 PM EDT Janet Donohue MD LAB BLOOD ORDERABLES Edited Resu lt - Final [facility] OF PATH[facility] [address] [place] [phone] from Last 3 Months or Most Recently Relevant to Health Maintenance Insurance O POS CIGNA HMO POS CIGNA HMO POS CIGNA HMO POS [facility] Address: [facility] [id number] [place] [id number] Care Teams Pie Bottomer Relationship Specialty Start Date End Date Vee Friedman MD [address] [place] [address] PCP - General Internal Medicine 01/24/16 Rica Obregon MD [address] [place] [phone] [email or web address] Medical Oncology 06/05/20 Azul Baird MD [address] [place] [id number] [email or web address] Surgical Oncology 06/05/20 Additional Source Comments The information contained in this document represents components of the legal health record. It is not the complete legal health record.[facility]
== END 2025-04-20 10:06 | disposition home or self-care (01) ==
LOC: HO.RHES 09:08
PROVIDERS: PCP Internal Medicine; Visit Provider Internal Medicine Rheumatology
DX: M06.9 Rheumatoid arthritis, unspecified (principal); M18.12 Unilateral primary osteoarthritis of first carpometacarpal joint, left hand; Z79.899 Other long term (current) drug therapy
CPT/HCPCS: 99214

== ENCOUNTER 2025-04-21 11:59 | Outpatient (REF) | payer OTHER, SELFPAY ==
--- OUTSIDE RECORDS SUMMARY | 2025-04-21 12:22 | XMS_ITS ---
Author Organization [facility] Address [address] [place] [address] Phone Care Team Providers Care Service Station Operator Name Role Phone Vee Friedman MD Primary Care Provider [phone] Rica Obregon MD Unavailable [phone] Azul Baird MD Unavailable Active Problems Problem [...] (TAXOL)pertuzum ab-trastuzumab- hyaluronidase-z zxf (PHESGO) 1,200 mg-600mg- 66158 unit/15mLpertuz umab-trastuzuma b-hyaluronidase -zzxf (PHESGO) 600 mg-600 mg- 73205 unit/10mL a. Therapy Complete Rica Obregon MD Treatment not started
--- OUTSIDE RECORDS SUMMARY | 2025-04-21 12:22 | XMS_ITS | Clinical Summary ---
Author Organization [facility] Address [address] [place] [address] Care Team Providers Care Human Resources Safety Manager Name Role Phone Unavailable Primary Care Provider Unavailabl e Social History Tobacco Use Types Packs/Day Years Used Date Smoking Tobacco: Never Assessed Sex and Gender Information Value Date Recorded Sex Assigned at Not on file Gender Identity Not on file Sexual Orientation Not on file Plan of Treatment Not on file
--- OUTSIDE RECORDS SUMMARY | 2025-04-21 12:23 | XMS_ITS | Encounter Summary ---
Author Organization [facility] Address [address] [place], [place] [id number] Phone Care Team Providers Care Comber Operator Name Role Phone Vee Friedman MD Primary Care Provider [phone] Rica Obregon MD Unavailable [phone] Azul Baird MD Unavailable Encounter Details Date Type Department Care Team (Late st Contact Info) Description 06/05/2020 Procedure Pass [facility] [place], Mammography, [facility] Imaging Department [address] [place] [address] Social History Tobacco Use Types Packs/Day Years [...] 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 Not on file documented as of this encounter Plan of Treatment Not on file documented as of this encounter Visit Diagnoses Not on filedocumented in this encounter Care Teams Comber Operator Relationship Specialty Start Date End Date Vee Friedman MD [address] [place] [address] PCP - General Internal Medicine 01/24/16 Rica Obregon MD [address] [facility] [address] [place] [phone] [email or web address] Medical Oncology 06/05/20 Azul Baird MD [address] [place] [phone] [email or web address] Surgical Oncology 06/05/20 documented as of this encounter Additional Source Comments The information contained in this document represents components of the legal health record. It is not the complete legal health record.[facility]
--- OUTSIDE RECORDS SUMMARY | 2025-04-21 12:23 | XMS_ITS | Encounter Summary ---
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 Not on file Not on file documented as of this encounter Plan of Treatment Not on file documented as of this encounter Visit Diagnoses Not on filedocumented in this encounter Care Teams Skates Operator Relationship Specialty Start Date End Date Vee Friedman MD [address] [place] [address] PCP - General Internal Medicine 01/24/16 Rica Obregon MD [address] [facility] [address] [place] [phone] [email or web address] Medical Oncology 06/05/20 Azul Baird MD [address] [place] [phone] [email or web address] Surgical Oncology 06/05/20 documented as of this encounter Additional Source Comments The information contained in this document represents components of the legal health record. It is not the complete legal health record.[facility]
--- OUTSIDE RECORDS SUMMARY | 2025-04-21 12:23 | XMS_ITS | Clinical Summary ---
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 7:06 AM EST This study is for PACS storage only and not for interpretation. us Rica Obregon MD IMG OUTSIDE IMAGING W/OUT I NTERPRETATION Final Result PERCIPIO_BWH * (ABNORMAL) TSH (01/24/2016 10:49 AM EDT) TSH 0.08(L) 0.40 - 5.00 uIU/mL [facility] PATHOLOG[facility] 01/24/2016 10:4 9 AM EDT 01/24/2016 2:05 PM EDT Janet Donohue MD LAB BLOOD ORDERABLES Edited Resu lt - Final [facility] PATH[facility] [address] [place] [phone] from Last 3 Months or Most Recently Relevant to Health Maintenance Insurance O POS CIGNA HMO POS CIGNA HMO POS CIGNA HMO POS Care Teams Put In Beat Adjuster Relationship Specialty Start Date End Date Vee Friedman MD [address] [place] [id number] PCP - General Internal Medicine 01/24/16 Rica Obrgeon MD [address] [place] [phone] [email or web address] Medical Oncology 06/05/20 Azul Baird MD [address] [place] [phone] [email or web address] Surgical Oncology 06/05/20 Additional Source Comments The information contained in this document represents components of the legal health record. It is not the complete legal health record.[facility]
--- OUTSIDE RECORDS SUMMARY | 2025-04-21 12:23 | XMS_ITS | Patient Health Record ---
Author Organization [facility] Address [address] [place] [address] Care Team Providers Care Aquacultural Worker Supervisor Name Role Phone Elder LUBIN, Vee Primary Care Provider Saqib Douglas Unavailable [phone] Allergies Allergen (clinical drug ingredient) Drug/Non Drug [...] Treatment Pending Test Test Name Order Date [id number] Plate 12/27/2020 [id number] Plate 01/15/2021 Insurance Providers Payer Name Payer Address Payer Phone Subscriber Number Group Number Insured Name Patient Relationship to Insured Coverage Start Date Coverage End Date [employer] [address] [place], [place] [phone] [id number] Jonathan Carlos Spouse - patient is the spouse of the insured Medical (General) History Medical History History ICD Code Anemia Arthritis breast cancer Measles Mumps Chicken pox Numbness Reflux ( GERD) thyroid Transfusions Surgical History Surgery Date(Month/Year) left mastectomy 11/07/2020 Axillary Lymphnode Dissection 12/10/2020
--- OUTSIDE RECORDS SUMMARY | 2025-04-21 12:23 | XMS_ITS | Clinical Summary ---
Author Organization [address] Address [address] [place] [id number] Care Team Providers Care Exhaust Tender Name Role Phone No, Pcp (Do Not [...] complete this topic Insurance MGD Care Teams Exhaust Tender Relationship Specialty Start Date End Date No, Pcp (Do Not Change Name) PCP - General 01/10/25
--- OUTSIDE RECORDS SUMMARY | 2025-04-21 12:23 | XMS_ITS | Clinical Summary ---
Author Organization [facility] Address [address] [place] [address] Phone Care Team Providers Care Wiring Inspector Name Role Phone Marsha Brewer MD Primary Care Provider [phone] Allergies Active Allergy Reactions Criticality Noted Date [...] Care Team Description 02/22/2025 Telephone Gastroenterology - [place] [facility] [address] [facility] [address] [place] [address] Lori Farrell MD from Last [...] topic Insurance [employer] MEDICARE Care Teams Wiring Inspector Relationship Specialty [place] [address] [place] [phone] PCP - General Internal Medicine 02/22/25
[2025-04-21 17:58] LABS: MANUAL DIFF FLAG NO
[2025-04-21 18:17] LABS: Alanine Aminotransferase 18 U/L (0-31); Aspartate Amino Transferase 30 U/L (5-31)
[2025-04-21 18:32] LABS: Hematocrit 34.4 % (37.0-47.0); Hemoglobin 11.0 g/dl (12.0-16.0); Imm Gran Abs Auto 0.01 X10*3/uL (0.00-0.03); Imm Gran Pct Auto 0.3 % (0.0-0.4); Lymphocytes Absolute Auto 1.0 X10*3/uL (1.2-4.9); Mean Corpuscular HGB Conc 32.0 g/dl (31.0-35.0); Mean Corpuscular Hemoglobin 30.4 pg (27.0-33.0); Mean Corpuscular Volume 95.0 fL (80.0-98.0); NRBC Abs Auto 0.000 X10*3/uL (0.0-0.012); NRBC Pct Auto 0.0 /100WBC (0.0-0.2); Platelet Count 261 X10*3/uL (160-400); Red Blood Count 3.62 X10*6/uL (4.20-5.50); White Blood Count 3.5 X10*3/uL (4.8-10.8)
== END 2025-04-21 12:00 | disposition home or self-care (01) ==
LOC: HO.HKASLDS 11:59
PROVIDERS: Visit Provider Internal Medicine Rheumatology
DX: Z79.899 Other long term (current) drug therapy (principal)
CPT/HCPCS: 36415; 84450; 84460; 85025; 85652; 86140